=== PATIENT | male | born 1995 | race Caucasian/White ===

== ENCOUNTER 2017-11-11 22:31 | Emergency (ER) | payer OTHER ==
[~2017-11-11] VITALS: Ht 170.2 cm; Wt 83.9 kg
[~2017-11-11 22:31] MED LIST: AMOX1TAB12 PO
[2017-11-12] MEDS ORDERED: KEFLEX500 MG PO (01:23)
== END 2017-11-12 01:20 ==
LOC: ER 22:31
DX: S61.227A Laceration with foreign body of left little finger without damage to nail, initial encounter (principal); W26.0XXA Contact with knife, initial encounter; Y93.G3 Activity, cooking and baking; Y92.090 Kitchen in other non-institutional residence as the place of occurrence of the external cause; Y99.8 Other external cause status

== ENCOUNTER → 2018-03-30 | Emergency (ER) | payer OTHER ==
[~2018-03-30] VITALS: Ht 170.2 cm; Wt 93.0 kg
[~2018-03-30] MED LIST changes: +KEFLEX500 MG PO
== END | disposition home or self-care (01) ==
LOC: ER 23:24
DX: K52.9 Noninfective gastroenteritis and colitis, unspecified (principal); R50.9 Fever, unspecified